=== PATIENT | male | born 1965 | race Caucasian/White ===

== ENCOUNTER 2020-09-08 15:56 | Emergency (ER) | payer BC ==
[~2020-09-08 15:56] MED LIST: CBD OIL PO; MOBIC15 MG PO; NORCO 5-325 TA1 EACH PO; NORCO 7.5-3251 EACH PO; PRINIVIL20 MG PO; VOLTAREN100 GM TP
[2020-09-08 17:39] LABS: HEMOGLOBIN 16.7 gm/dl (14.0-17.5); RED BLOOD COUNT 5.35 M/UL (4.20-5.50); WHITE BLOOD COUNT 11.3 K/UL (4.5-11.0)
[2020-09-08 18:35] LABS: BUN/CREATININE RATIO 15 (0-10)
[2020-09-08] MEDS ORDERED: IBUPROFEN600 MG PO (23:10)
[2020-09-08] MEDS ORDERED: TYLENOL PM EX-1 EACH PO (23:10)
== END 2020-09-09 01:02 | disposition home or self-care (01) ==
LOC: ER1 15:56
PROVIDERS: Emergency Medicine
DX: S82.102A Unspecified fracture of upper end of left tibia, initial encounter for closed fracture (principal); S82.402A Unspecified fracture of shaft of left fibula, initial encounter for closed fracture; I10 Essential (primary) hypertension; F17.200 Nicotine dependence, unspecified, uncomplicated; V86.59XA Driver of other special all-terrain or other off-road motor vehicle injured in nontraffic accident, initial encounter; Y93.39 Activity, other involving climbing, rappelling and jumping off
CPT/HCPCS: 71045; 72170; 73562; 73610; 80053; 85025; 85610; 93005; 96374; 96375; 99284; J2270; J2405; Q9967

== ENCOUNTER → 2020-10-02 | Outpatient (CLI) | payer BC ==
[~2020-10-02] MED LIST changes: +IBUPROFEN600 MG PO; +TYLENOL PM EX-1 EACH PO
== END ==
LOC: KOH-I 09:36
DX: S83.512A Sprain of anterior cruciate ligament of left knee, initial encounter (principal); S83.412A Sprain of medial collateral ligament of left knee, initial encounter; S82.435A Nondisplaced oblique fracture of shaft of left fibula, initial encounter for closed fracture; S83.272A Complex tear of lateral meniscus, current injury, left knee, initial encounter; S83.242A Other tear of medial meniscus, current injury, left knee, initial encounter
CPT/HCPCS: 73721